=== PATIENT | female | born 1955 | race Caucasian/White ===

== ENCOUNTER 2016-08-17 18:44 | Emergency (ER) | payer MEDICAID ==
--- NOTE | ~2016-08-17 | CR72 ---
[facility] A Service of [facility] RADIOLOGY TEXT RESULTS PATIENT: MAURO CUEVA LOCATION: [facility] : 54 UNIT #: [id number] AGE: [address]: Fortunato Rees MD SEX: F ORDER DR: [id number] [facility] [address] [place], [place] [address] [id number] E MR#: [id number] Acc #: [id number] NAME: MAURO CUEVA : 1955 SEX: F STUDY DATE/TIME: 08/17/2016 18:46 UNIT: [facility] ROOM: STUDY DESCRIPTION: CR Chest Single View Portable Attending Physician: Fortunato Rees M.D. Ordering Physician: Fortunato Rees M.D. Primary Care Physician: Calista Roberto M.D. MEDICAL IMAGING REPORT This report is preliminary unless electronic signature is present EXAM Portable chest. HISTORY Chest pain, shortness of air, cough, congestion for 2 days. COMPARISON 02/29/2016 FINDINGS Portable view of the chest demonstrates a left-sided volume loss with mild elevation of the left hemidiaphragm. Multiple clips seen in the left lung in the left hilar region that could be related to prior surgery. Correlate clinically. Patchy hyperlucency coarse parenchymal markings suggest underlying emphysema and fibrosis. No definite acute airspace disease. There is blunting left CP angle, though I suspect this is related to chronic pleural thickening. There has been partial left rib resection, left posterior seventh rib and possibly a portion of the eighth rib. No visible pneumothorax. Dictated by... Michelle Waldron M.D. THIS IS AN ELECTRONICALLY VERIFIED REPORT Michelle Waldron M.D. at 08/18/2016 1:07 PM CARYL/vane TD: 08/17/2016 22:05 JOB #: [id number] MEDICAL IMAGING REPORT [facility] A Service of [facility] RADIOLOGY TEXT RESULTS PATIENT: MAURO CUEVA LOCATION: [facility] : 54 UNIT #: [id number] AGE: [address]: Fortunato Rees MD SEX: F ORDER DR: Page 1 of 1 COPY
--- NOTE | ~2016-08-17 | EKG ---
PATIENT: MAURO CUEVA UNIT #: [id number] Ventricular Rate: 111 BPM Atrial Rate: 111 BPM P-R Interval: 168 ms QRS Duration: 86 ms Q-T Interval: 330 ms QTC Calculation(Bezet): 448 ms P [place]: 57 degrees Calculated R [place]: -16 degrees Calculated T [place]: 39 degrees Diagnosis Line: Sinus tachycardia Diagnosis Line: Nonspecific T wave abnormality Diagnosis Line: Abnormal ECG Diagnosis Line: When compared with ECG of 01-MAR-2016 10:16, Diagnosis Line: Vent. rate has increased BY 47 BPM Diagnosis Line: Confirmed by LOAN MCINTOSH MD ([id number]) on Diagnosis Line: 08/18/2016 7:18:42 AM INTERPRETING RISHABH POSEY
[~2016-08-17 18:44] MED LIST: ADVAIR 2501 DISK W/D PO; ALBUTEROL MININEB NEB; ALBUTEROL17 GM INH; ALPRAZOLAM PO; ARNUITY ELLIP200 MCG INH; BACLOFEN10 MG PO; BENADRYL PO; DALIRESP500 MCG PO; FLONASE 0.05% N16 G1; HYDROCODON-ACE1 EAC7 PO; HYDROCODONE-APA1 T33 PO; LEVAQUIN PO; LOPRESSOR PO; NEURONTIN300 MG PO; OMEPRAZOLE10 M1 PO; OMEPRAZOLE40 MG PO; PHENERGAN25 MG PO; PRINIVIL20 M1 PO; PROTONIX PO; SPIRIVA18 MCG INH; STIOLTO RESPIMAT4 GM INH; SYMBICORT INH; SYNTHROID125 PO; TYLENOL325 M1 PO; ULTRAM PO; VITAMIN B12-FO1 EACH PO; VITAMIN D35000 UNIT PO; WELLBUTRIN PO; ZITHROMAX PO
[2016-08-17 19:00] LABS: BASOPHIL# 0.1 X10e3 (0-0.3); BASOPHIL% 0.5 % (0-2.5); EOSINOPHIL% 0.4 % (0.0-7.0); HEMATOCRIT 37.4 % (35.0-45.0); HEMOGLOBIN 12.2 gm/dL (12.0-16.0); LYMPHOCYTE# 1.7 X10e3 (1.0-3.5); LYMPHOCYTE% 14.6 % (17.0-45.0); MEAN CELL VOLUME 88.3 FL (83-96); MEAN CORPUSCULAR HEMOGLOBIN 28.9 PG (28-34); MEAN CORPUSCULAR HGB CONC 32.7 g/dL (30-36); MEAN PLATELET VOLUME 8.6 FL (6.5-11.5); MONOCYTE# 1.3 X10e3 (0-1.0); MONOCYTE% 10.7 % (3.0-12.0); NEUTROPHIL# 8.8 X10e3 (1.5-7.1); NEUTROPHIL% 73.8 % (40-75); PLATELET COUNT 195 X10e3 (140-420); RED BLOOD COUNT 4.23 X10e (3.90-5.30); RED CELL DISTRIBUTION WIDTH 13.8 % (11.0-15.5)
[2016-08-17 19:02] LABS: DIFF IND NO
[2016-08-17 19:21] LABS: POC - CKMB <1.0 ng/mL (0.0-7.9); POC - TROPONIN <0.05 ng/mL (<=0.05)
[2016-08-17 19:26] LABS: ALBUMIN SERUM 3.6 g/dL (3.5-5.0); BILIRUBIN, DIRECT 0.2 mg/dL (0.0-0.2); BILIRUBIN,INDIRECT 0.5 mg/dL (0.0-0.9); BILIRUBIN,TOTAL 0.7 mg/dL (0.2-2.0); CALCIUM SERUM 8.7 mg/dL (8.4-10.2); GLOM FILT RATE Estimated 60.4 mL/min (>60); POTASSIUM 3.8 mmol/L (3.5-5.1); PROTEIN TOTAL SERUM 7.2 g/dL (6.0-8.3)
[2016-08-31] MEDS ORDERED: ZESTRIL2.5 M1 (11:40)
[2016-08-31] MEDS ORDERED: LOPRESSOR (11:40)
[2016-08-31] MEDS ORDERED: LEVOTHYROXINE25 MCG (11:40)
[2016-08-31] MEDS ORDERED: OXYGEN (11:41)
[2016-08-31] MEDS ORDERED: ALBUTEROL17 GM (11:41)
[2016-08-31] MEDS ORDERED: BUPROPION HCL150 M2 (11:41)
[2016-08-31] MEDS ORDERED: STIOLTO RESPIMAT4 GM (11:41)
[2016-08-31] MEDS ORDERED: PRILOSEC (11:41)
[2016-08-31] MEDS ORDERED: ARNUITY ELLIP100 MCG ×2 (11:41→11:42)
[2016-08-31] MEDS ORDERED: GABAPENTIN300 M2 (11:41)
[2016-08-31] MEDS ORDERED: DALIRESP500 MCG (11:41)
[2016-08-31] MEDS ORDERED: VITAMIN D1000 UNI2 (11:42)
[2016-08-31] MEDS ORDERED: BENADRYL25 MG (11:42)
[2016-08-31] MEDS ORDERED: ALPRAZOLAM ER0.5 MG (11:42)
[2016-08-31] MEDS ORDERED: SUPER B-50 COM1 EACH (11:42)
[2016-08-31] MEDS ORDERED: PHENERGAN12.5 M1 (11:42)
[2016-08-31] MEDS ORDERED: CONZIP100 MG (11:43)
[2016-08-31] MEDS ORDERED: BACLOFEN20 M1 (11:43)
[2016-08-31] MEDS ORDERED: KEPPRA500 MG/5 M (11:43)
[2016-08-31] MEDS ORDERED: ALBUTEROL20 ml (11:43)
== END 2016-08-17 20:00 | disposition home or self-care (01) ==
LOC: CED 18:44
PROVIDERS: Emergency Medicine
DX: J44.1 Chronic obstructive pulmonary disease with (acute) exacerbation (principal); J20.9 Acute bronchitis, unspecified; I10 Essential (primary) hypertension; J45.909 Unspecified asthma, uncomplicated; K21.9 Gastro-esophageal reflux disease without esophagitis; Z90.710 Acquired absence of both cervix and uterus; Z88.5 Allergy status to narcotic agent; Z88.8 Allergy status to other drugs, medicaments and biological substances
CPT/HCPCS: 36415; 71010; 80048; 80076; 82553; 83605; 84484; 85025; 87040; 93005; 94640; 96374; 96375; 99284; J1885; J2930

== ENCOUNTER → 2016-08-27 | Outpatient (CLI) | payer MEDICAID ==
[~2016-08-27] MED LIST changes: +ALBUTEROL17 GM; +ALBUTEROL20 ml; +ALPRAZOLAM ER0.5 MG; +ARNUITY ELLIP100 MCG; +BACLOFEN20 M1; +BENADRYL25 MG; +BUPROPION HCL150 M2; +CONZIP100 MG; +DALIRESP500 MCG; +GABAPENTIN300 M2; +KEPPRA500 MG/5 M; +LEVOTHYROXINE25 MCG; +LOPRESSOR; +OXYGEN; +PHENERGAN12.5 M1; +PRILOSEC; +STIOLTO RESPIMAT4 GM; +SUPER B-50 COM1 EACH; +VITAMIN D1000 UNI2; +ZESTRIL2.5 M1
--- NOTE | ~2016-08-27 | MR17 ---
[facility] A Service of [facility] RADIOLOGY TEXT RESULTS PATIENT: MAURO CUEVA LOCATION: [facility] : 54 UNIT #: [id number] AGE: [address]: Anil Sarabia II, MD SEX: F ORDER DR: [id number] [facility] [address] [place], [place] [address] [id number] O MR#: [id number] Acc #: [id number] NAME: MAURO CUEVA : 1955 SEX: F STUDY DATE/TIME: 08/27/2016 9:36 UNIT: [facility] ROOM: STUDY DESCRIPTION: MR Brain WWo Contrast Attending Physician: Anil Sarabia II., M.D. Referring Physician: Anil Sarabia II., M.D. Ordering Physician: Anil Sarabia II., M.D. Primary Care Physician: Calista Roberto M.D. MRI CENTER REPORT This report is preliminary unless electronic signature is present. EXAM MRI of the brain with and without contrast, 08/27/2016 COMPARISON None HISTORY First seizure 3 months ago. Again July 03. FINDINGS Multi-sequence, multiplanar imaging of the brain was obtained with and without contrast. GFR measured greater than 60. 16 mL of MultiHance was administered intravenously. Scattered nonspecific nonenhancing hyperintense T2 signal lesions are noted in the white matter predominantly in the supratentorial periventricular and subcortical regions. Thick slices through the sella with the pituitary gland, pineal region and upper cervical spine are unremarkable. Vascular flow voids of the major cerebral arteries and dural venous sinuses do not demonstrate any complete occlusion or severe abnormality. S-shaped nasal septal deviation is seen. Orbits with the ocular structures, paranasal sinuses and mastoids are unremarkable. Thin coronal T2 sequence through the hippocampal formations demonstrate normal size, shape, signal and symmetry. No congenital malformations or obvious cortical dysgenesis in the current study. IMPRESSION Nonenhancing nonspecific few hyperintense T2 less than 1.0 cm lesions are noted in the brain predominantly in the subcortical and periventricular white matter. They are likely related to mild chronic microvascular ischemic change or migraine based on age and statistics. STS. [facility] A Service of [facility] RADIOLOGY TEXT RESULTS PATIENT: MAURO CUEVA [facility] UNIT #: [id number] AGE: [address]: Anil Sarabia II, MD SEX: F ORDER DR: Dictated by... Dayday Peterson M.D. THIS IS AN ELECTRONICALLY VERIFIED REPORT Dayday Peterson M.D. at 08/28/2016 3:19 PM CPR/noah TD: 08/27/2016 16:07 JOB #: [id number] MRI CENTER REPORT Page 1 of 1 COPY
--- NOTE | ~2016-08-27 | EE ---
Unit #: [id number] #: [id number] Patient: MAURO CUEVA [id number] [address] [address] [id number] O MR#: [id number] NAME: MAURO CUEVA : 1955 SEX: F STUDY DATE/TIME: 08/28/2016 UNIT: [facility] ROOM: STUDY DESCRIPTION: EEG Attending Physician: Anil Sarabia II., M.D. Referring Physician: Anil Sarabia II., M.D. Primary Care Physician: Calista Roberto M.D. NEURODIAGNOSTICS REPORT EXAM EEG. REASON FOR STUDY Seizures. TECH Savana. TECHNICAL INFORMATION This is a routine EEG performed using the standard International 10-20 system of electrode placement. Photic stimulation was performed. Hyperventilation was not performed. Throughout the entire study, the best background rhythm seen is approximately 11 to 12 Hz. This rhythm is seen in both posterior head regions symmetrically and does attenuate to eye opening and closure. Photic stimulation was performed which did not elicit any epileptiform abnormalities; however, a good photic drive response is seen. Hyperventilation was not performed. There was no sleep recorded during the EEG. Throughout the entire study, there were no electrographic seizures recorded nor where there any independent epileptiform abnormality seen. INTERPRETATION Normal awake EEG. A normal EEG does not rule out the possibility of a seizure disorder. Clinical correlation is advised. Dictated by... Anil Sarabia II., M.D. GWS/ellen TD: 08/29/2016 07:15 JOB #: [id number] Unit #: [id number] #: [id number] Patient: MAURO CUEVA NEURODIAGNOSTICS REPORT Page 1 of 1 X NEURODIAGNOSTICS REPORT
== END | disposition home or self-care (01) ==
LOC: CMRI 08:43
DX: G40.109 Localization-related (focal) (partial) symptomatic epilepsy and epileptic syndromes with simple partial seizures, not intractable, without status epilepticus (principal); G93.89 Other specified disorders of brain
CPT/HCPCS: 70553; 95816; A9577

== ENCOUNTER 2016-08-31 12:13 | Emergency (ER) | payer MEDICAID ==
--- NOTE | ~2016-08-31 | CR282 ---
[facility] A Service of [facility] RADIOLOGY TEXT RESULTS PATIENT: MAURO CUEVA LOCATION: SED : 53 UNIT #: [id number] AGE: [address]: LUDMILA TURNER PA-C SEX: F ORDER DR: [id number] [address] [address] [id number] E MR#: [id number] Acc #: [id number] NAME: MAURO CUEVA : 1955 SEX: F STUDY DATE/TIME: 08/31/2016 11:48 UNIT: [facility] ROOM: STUDY DESCRIPTION: CR Wrist Min 3 View Rt Attending Physician: Ludmila Turner Pa-C Ordering Physician: Ludmila Turner Pa-C Primary Care Physician: Calista Roberto M.D. MEDICAL IMAGING REPORT This report is preliminary unless electronic signature is present. EXAM Right wrist 08/31/2016 HISTORY 61-year-old female with right wrist pain status post arm wrestling 2 days ago. COMPARISON None FINDINGS 3 views of the right wrist demonstrate no acute fracture or dislocation. Soft tissues are unremarkable. IMPRESSION Unremarkable right wrist. Dictated by... Jeff River M.D. THIS IS AN ELECTRONICALLY VERIFIED REPORT Jeff River M.D. at 08/31/2016 2:54 PM Constanza TD: 08/31/2016 14:49 JOB #: [id number] MEDICAL IMAGING REPORT Page 1 of 1
== END 2016-08-31 12:38 | disposition home or self-care (01) ==
LOC: SED 12:13
DX: S63.501A Unspecified sprain of right wrist, initial encounter (principal); I10 Essential (primary) hypertension; Z90.89 Acquired absence of other organs; Z85.118 Personal history of other malignant neoplasm of bronchus and lung; Z90.2 Acquired absence of lung [part of]; Z88.8 Allergy status to other drugs, medicaments and biological substances; X58.XXXA Exposure to other specified factors, initial encounter; Y93.89 Activity, other specified
CPT/HCPCS: 29125; 73110; 99283